=== PATIENT | female | born 1965 | race African-American/Black ===

== ENCOUNTER 2022-04-15 16:11 | Outpatient (CLI) | payer BC ==
[2022-04-15 17:51] LABS: Anion Gap 13 mmol/L (10-20); BUN (Urea Nitrogen) 13 mg/dL (9.8-20.1); Calc. Creatinine Clearance 0 mL/min (70-130); Calcium 8.8 mg/dL (7.8-10.44); Carbon Dioxide 30 mmol/L (22-29); Chloride 101 mmol/L (98-107); Estimated GFR 62; Glucose 104 mg/dL (70-105); Potassium 4.4 mmol/L (3.5-5.1); Sodium 140 mmol/L (136-145)
[2022-04-15 18:01] LABS: Hemoglobin 9.8 g/dL (12.0-15.5); Mean Corpuscular Hemoglobin 30.5 pg (27.0-33.0); Mean Corpuscular Volume 95.3 fl (81.6-98.3); Mean Platelet Volume 13.4 fl (7.4-10.4); Platelet Count 210 10x3/uL (150-450); RBC Distribution Width 16.5 % (11.5-14.5); Red Blood Cell (RBC) Count 3.21 10x6/uL (3.90-5.03); White Blood Cell (WBC) Count 3.5 10x3/uL (3.5-10.5)
== END 2022-04-15 16:12 | disposition home or self-care (01) ==
LOC: CSHLAB 16:11
PROVIDERS: ATTEND Podiatrist Foot & Ankle Surgery
DX: Z01.812 Encounter for preprocedural laboratory examination (principal); Z20.822 Contact with and (suspected) exposure to COVID-19; M21.612 Bunion of left foot
CPT/HCPCS: 80048; 85027; 87811

== ENCOUNTER 2022-04-18 09:54 | Day surgery (SDC) | payer BC ==
[2022-04-17 12:33] VITALS: BMI 36.8
[2022-04-18] MEDS ORDERED: Lidocaine 1% MPF 2 ML VIAL ONE (10:38)
[2022-04-18] MEDS ORDERED: Bupivacaine PF 0.5% 30 ML VIAL ONE (10:46)
[2022-04-18] MEDS ORDERED: Neomycin-Polymyxin 1 ML AMP ONE (10:47)
[2022-04-18] MEDS ORDERED: Dexamethasone 20 MG/5 ML VIAL ONE (10:57)
[2022-04-18] MEDS ORDERED: Fentanyl 100 MCG/2 ML VIAL ONE (10:57)
[2022-04-18] MEDS ORDERED: Lidocaine 1% PF 5 ML VIAL ONE (10:57)
[2022-04-18] MEDS ORDERED: Ondansetron PF 4 MG/2 ML Vial ONE (10:57)
[2022-04-18] MEDS ORDERED: PROPOFOL 20 ML ONE (10:57)
[2022-04-18] MEDS ORDERED: Ketorolac Tromethamine 30 MG/ML VIAL ONE (10:57)
[2022-04-18] MEDS ORDERED: Midazolam HCl 2 mg/2 ml Vial ONE (10:57)
[2022-04-18] MEDS ORDERED: Clindamycin/D5W 900 mg/50 ml Premix Bag ONE (11:49)
== END 2022-04-18 14:25 | disposition home or self-care (01) ==
LOC: CSHSDC 09:54
PROVIDERS: ATTEND Podiatrist Foot & Ankle Surgery
PROC: 0QBR0ZZ Excision of Left Toe Phalanx, Open Approach (ICD-10-PCS; principal; 2022-04-18)
DX: M21.612 Bunion of left foot (principal); I10 Essential (primary) hypertension; F32.A Depression, unspecified; K21.9 Gastro-esophageal reflux disease without esophagitis; Z20.822 Contact with and (suspected) exposure to COVID-19; Z79.899 Other long term (current) drug therapy; Z88.0 Allergy status to penicillin; Z88.2 Allergy status to sulfonamides; Z88.8 Allergy status to other drugs, medicaments and biological substances
CPT/HCPCS: J1100; J1885; J2250; J2405; J2704; J3010; J3490; S0020

== ENCOUNTER 2022-07-08 11:49 | Emergency (ER) | payer BC | END 2022-07-08 16:15 | disposition home or self-care (01) | LOC: CSHERS 11:49 | DX: M54.42 Lumbago with sciatica, left side (principal); I10 Essential (primary) hypertension; E78.5 Hyperlipidemia, unspecified ==

== ENCOUNTER → 2022-11-24 | Day surgery (SDC) | payer BC ==
[2022-11-24 09:14] LABS: Prothrombin Time 10.4 sec (9.5-12.1)
== END ==
LOC: CSHCT 07:51
PROVIDERS: ATTEND Internal Medicine
DX: D64.9 Anemia, unspecified (principal); D72.819 Decreased white blood cell count, unspecified; I10 Essential (primary) hypertension; E78.5 Hyperlipidemia, unspecified; F32.A Depression, unspecified; F41.9 Anxiety disorder, unspecified; Z88.0 Allergy status to penicillin; Z88.1 Allergy status to other antibiotic agents; Z79.899 Other long term (current) drug therapy
CPT/HCPCS: 38222; 85097; 85610; 88184; 88237; 88305; 88311; 88313; 88342; 99152

== ENCOUNTER 2023-11-17 12:25 | Outpatient (CLI) | payer BC | END 2023-11-17 12:26 | disposition home or self-care (01) | LOC: CSHMAMMO 12:25 | PROVIDERS: ATTEND Student in an Organized Health Care Education/Training Program | DX: Z12.31 Encounter for screening mammogram for malignant neoplasm of breast (principal); Z91.89 Other specified personal risk factors, not elsewhere classified | CPT/HCPCS: 77063; 77067 ==

== ENCOUNTER 2023-11-24 02:09 | Emergency (ER) | payer BC ==
[2023-11-24] MEDS ORDERED: Acetaminophen 500 MG TAB ONE (02:44)
== END 2023-11-24 03:12 | disposition home or self-care (01) ==
LOC: CSHERS 02:09
DX: L03.116 Cellulitis of left lower limb (principal); I10 Essential (primary) hypertension; E78.5 Hyperlipidemia, unspecified; Z79.82 Long term (current) use of aspirin; Z79.899 Other long term (current) drug therapy

== ENCOUNTER 2024-01-07 08:29 | Outpatient (CLI) | payer BC ==
[2024-01-07] MEDS ORDERED: Iopamidol 300 61% 100 ML VIAL FS ONE (10:04)
== END 2024-01-07 08:30 | disposition home or self-care (01) ==
LOC: CSHCT 08:29
PROVIDERS: ATTEND Student in an Organized Health Care Education/Training Program
DX: D59.6 Hemoglobinuria due to hemolysis from other external causes (principal); R10.12 Left upper quadrant pain; D46.9 Myelodysplastic syndrome, unspecified
CPT/HCPCS: 74177